=== PATIENT | male | born 1980 | race Hispanic/Latino ===

== ENCOUNTER 2020-03-16 15:58 | Emergency (ER) | payer SELFPAY ==
--- NOTE | 2020-03-16 18:09 | EDPHYS ---
Physician Documentation [facility] Name: Lul Almanza Age: 39 yrs Sex: Male : 1980 Arrival Date: 03/16/2020 Time: 16:02 Bed 8 Private MD: ED Physician Harman Nixon HPI: 03/16 18:01 This 39 yrs old Male presents to ER via Ambulatory with complaints of Neck rn Pain, >24Hrs Old, Arm Pain, Chest Pain. 18:01 The patient or guardian complains of pain. rn 18:03 The symptoms are located at the left scapular area and left trapezius. Onset: The rn symptoms/episode began/occurred 1 month(s) ago. Associated signs and symptoms: Pertinent negatives: bladder incontinence, bowel incontinence, weakness. The pain radiates to the left arm. Modifying factors: The symptoms are alleviated by remaining still, the symptoms are aggravated by movement. Severity of symptoms: At their worst the symptoms were moderate, in the emergency department the symptoms are unchanged. The patient has not experienced similar symptoms in the past. Reports a month or two of left trapezius and scapular pain, radiates to chest and down left arm, no acute trauma, does workout a lot. No weakness/numbness/tingling. . Historical: - Allergies: 16:18 No Known Allergies; ca1 - Home Meds: 16:18 Metformin Oral [Active]; ca1 - PMHx: 16:18 Diabetes - NIDDM; Hypertension; ca1 - PSHx: 16:18 None; ca1 - Immunization history:: Adult Immunizations up to date, Flu vaccine is not up to date. - Social history:: Smoking status: Reported history of juuling and/or vaping. - Family history:: not pertinent. - Hospitalizations: : No recent hospitalization is reported. ROS: 18:03 Constitutional: Negative for fever, chills, and weight loss, Eyes: Negative for injury, rn pain, redness, and discharge, Neck: Negative for injury, pain, and swelling, Cardiovascular: Negative for palpitations, and edema, Respiratory: Negative for shortness of breath, cough, wheezing, and pleuritic chest pain, Abdomen/GI: Negative for abdominal pain, nausea, vomiting, diarrhea, and constipation, Back: Negative for injury and pain, MS/Extremity: Negative for injury and deformity, Skin: Negative for injury, rash, and discoloration, Neuro: Negative for headache, weakness, numbness, tingling, and seizure. Exam: 18:03 Constitutional: This is a well developed, well nourished patient who is awake, alert, rn and in no acute distress. Head/Face: Normocephalic, atraumatic. Neck: Trachea midline, no masses palpated, and no cervical lymphadenopathy. Supple, full range of motion without nuchal rigidity, or vertebral point tenderness. No Meningismus. Chest/axilla: Normal chest wall appearance and motion. Nontender with no deformity. No lesions are appreciated. Skin: Warm, dry MS/ Extremity: Pulses equal, no cyanosis. Neurovascular intact. Full, normal range of motion. Equal circumference. Neuro: Awake and alert, GCS 15, oriented to person, place, time, and situation. Cranial nerves II-XII grossly intact. Motor strength 5/5 in all extremities. Sensory grossly intact. Cerebellar exam normal. Vital Signs: 16:13 BP 145 / 90; Pulse 81; Resp 18 S; Temp 98.4; Pulse Ox 99% on R/A; Weight 83.91 kg (R); ca1 Height 5 ft. 7 in. (170.18 cm) (R); Pain 7/10; 17:45 BP 155 / 89; Pulse 86; Resp 17; Pulse Ox 99% ; bp 18:15 BP 135 / 79; Pulse 89; Resp 17; Temp 98.5; Pulse Ox 99% ; bp 16:13 Body Mass Index 28.97 (83.91 kg, 170.18 cm) ca1 MDM: 17:47 Patient medically screened. rn 18:03 Differential diagnosis: arthritis, Cervical Disc Herniation Cervical Discogenic Pain rn Cervical Raiculopathy cervical strain, torticollis. Data reviewed: vital signs, nurses notes, and as a result, I will discharge patient. Counseling: I had a detailed discussion with the patient and/or guardian regarding: the historical points, exam findings, and any diagnostic results supporting the discharge/admit diagnosis, the need for outpatient follow up, to return to the emergency department if symptoms worsen or persist or if there are any questions or concerns that arise at home. Special discussion: I discussed with the patient/guardian in detail that at this point there is no indication for admission to the hospital. It is understood, however, that if the symptoms persist or worsen the patient needs to return immediately for re-evaluation. Further emergent ED testing is not indicated at this point in time. I discussed with the patient/guardian in detail the need to arrange with the PCP or specialist further outpatient testing, MRI. Administered Medications: 18:18 Drug: Decadron 10 mg Route: IM; Site: left deltoid; jl7 18:29 Follow up: Response: Pain is decreased bp 18:18 Drug: TORadol 30 mg Route: IM; Site: right deltoid; jl7 18:29 Follow up: Response: Pain is decreased bp Disposition: 03/16/20 18:08 Discharged to Home. Impression: Cervical disc disorder with radiculopathy, high cervical region. - Condition is Stable. - Discharge Instructions: Cervical Radiculopathy. - Prescriptions for Cyclobenzaprine 10 mg Oral Tablet - take 1 tablet by ORAL route At bedtime As needed; 15 tablet. Medrol (Marcus) 4 mg Oral Tablets, Dose Pack - take 1 tablet by ORAL route as directed - follow package instructions; 1 packet. - Medication Reconciliation Form, Thank You Letter, Antibiotic Education, Prescription Opioid Use form. - Follow up: Private Physician; When: As needed; Reason: Recheck today's complaints, Re-evaluation by your physician. - Problem is an ongoing problem. - Symptoms have improved. Signatures: Harman Nixon MD MD rn Leal, Jahala RN RN jl7 Shahzad Dumont RN RN bp Venecia Arteaga RN RN ca1 Corrections: (The following items were deleted from the chart) 18:29 18:08 03/16/2020 18:08 Discharged to Home. Impression: Cervical disc disorder with bp radiculopathy, high cervical region. Condition is Stable. Forms are Medication Reconciliation Form, Thank You Letter, Antibiotic Education, Prescription Opioid Use. Follow up: Private Physician; When: As needed; Reason: Recheck today's complaints, Re-evaluation by your physician. Problem is an ongoing problem. Symptoms have improved. rn
--- NOTE | 2020-03-16 18:09 | ER ---
Nurse's Notes [facility] Name: Lul Almanza Age: 39 yrs Sex: Male : 1980 Arrival Date: 03/16/2020 Time: 16:02 Bed 8 Private MD: Diagnosis: Cervical disc disorder with radiculopathy, high cervical region Presentation: 03/16 16:13 Chief complaint: Patient states: Been having this pain on my L shoulder blade for about ca1 a month now, I don't know if it's a pinch nerve. The last week and a half, when I do something, it shoots to my L arm and sometimes on the L side of my chest. Denies injury to the affected areas. Coronavirus screen: Client denies travel out of the [place] in the last 14 days. At this time, the client does not indicate any symptoms associated with coronavirus-19. Ebola Screen: Patient negative for fever greater than or equal to 101.5 degrees Fahrenheit, and additional compatible Ebola Virus Disease symptoms Patient denies exposure to infectious person. Patient denies travel to an Ebola-affected area in the 21 days before illness onset. No symptoms or risks identified at this time. Initial Sepsis Screen: Does the patient meet any 2 criteria? No. Patient's initial sepsis screen is negative. Does the patient have a suspected source of infection? No. Patient's initial sepsis screen is negative. Risk Assessment: Do you want to hurt yourself or someone else? Patient reports no desire to harm self or others. Onset of symptoms was March 16, 2020. 16:13 Method Of Arrival: Ambulatory ca1 16:13 Acuity: VIKASH 4 ca1 Triage Assessment: 17:45 General: Appears in no apparent distress. uncomfortable, Behavior is calm, cooperative, bp appropriate for age. Pain: Complains of pain in left trapezius and left scapular area. EENT: No deficits noted. Neuro: No deficits noted. Cardiovascular: No deficits noted. Respiratory: No deficits noted. GI: No signs and/or symptoms were reported involving the gastrointestinal system. : No signs and/or symptoms were reported regarding the genitourinary system. Derm: No deficits noted. Musculoskeletal: Reports pain in left trapezius and left scapular area. Historical: - Allergies: 16:18 No Known Allergies; ca1 - Home Meds: 16:18 Metformin Oral [Active]; ca1 - PMHx: 16:18 Diabetes - NIDDM; Hypertension; ca1 - PSHx: 16:18 None; ca1 - Immunization history:: Adult Immunizations up to date, Flu vaccine is not up to date. - Social history:: Smoking status: Reported history of juuling and/or vaping. - Family history:: not pertinent. - Hospitalizations: : No recent hospitalization is reported. Screenin:45 Abuse screen: Denies threats or abuse. Denies injuries from another. Nutritional bp screening: No deficits noted. Tuberculosis screening: No symptoms or risk factors identified. Fall Risk None identified. Assessment: 17:45 General: SEE TRIAGE NOTE. Neuro: Level of Consciousness is awake, alert, obeys bp commands, Oriented to person, place, time, situation, Appropriate for age. 18:28 Reassessment: PT D/C HOME AMBULATORY, DX WITH CERVICAL RADICULOPATHY. bp Vital Signs: 16:13 BP 145 / 90; Pulse 81; Resp 18 S; Temp 98.4; Pulse Ox 99% on R/A; Weight 83.91 kg (R); ca1 Height 5 ft. 7 in. (170.18 cm) (R); Pain 7/10; 17:45 BP 155 / 89; Pulse 86; Resp 17; Pulse Ox 99% ; bp 18:15 BP 135 / 79; Pulse 89; Resp 17; Temp 98.5; Pulse Ox 99% ; bp 16:13 Body Mass Index 28.97 (83.91 kg, 170.18 cm) ca1 ED Course: 16:02 Patient arrived in ED. as 16:17 Triage completed. ca1 16:18 Arm band placed on right wrist. ca1 17:45 Patient has correct armband on for positive identification. Bed in low position. Call bp light in reach. Side rails up X2. 17:47 Harman Nixon MD is Attending Physician. rn 17:57 Shahzad Dumont, JOSH is Primary Nurse. bp 18:28 No provider procedures requiring assistance completed. Patient did not have IV access bp during this emergency room visit. Administered Medications: 18:18 Drug: Decadron 10 mg Route: IM; Site: left deltoid; jl7 18:29 Follow up: Response: Pain is decreased bp 18:18 Drug: TORadol 30 mg Route: IM; Site: right deltoid; jl7 18:29 Follow up: Response: Pain is decreased bp Outcome: 18:08 Discharge ordered by . rn 18:28 Discharged to home ambulatory. bp 18:28 Condition: stable 18:28 Discharge instructions given to patient, Instructed on discharge instructions, follow up and referral plans. medication usage, Demonstrated understanding of instructions, follow-up care, medications, Prescriptions given X 2. 18:29 Patient left the ED. bp Signatures: Ambar Nixon Roman, MD MD rn Leal, Jahala RN RN jl7 Shahzad Dumont RN RN bp Acob, Venecia, RN RN ca1 Corrections: (The following items were deleted from the chart) 18:00 17:30 BP 155 / 89; Pulse 86bpm; Resp 17bpm; Pulse Ox 99%; bp bp
[2020-03-16] MEDS ORDERED: KETOROLAC 30 MG/ML INJ ONE (18:27)
[2020-03-16] MEDS ORDERED: dexAMETHasone 10 MG/ML VIAL ONE (18:27)
[2020-03-19 22:56] VITALS: O2SAT 99
[2020-03-19 22:59] VITALS: BP 135/79; TEMP 98.5
== END 2020-03-16 18:29 | disposition home or self-care (01) ==
LOC: ER 15:58
DX: M50.11 Cervical disc disorder with radiculopathy, high cervical region (principal); I10 Essential (primary) hypertension; E11.9 Type 2 diabetes mellitus without complications; Z87.891 Personal history of nicotine dependence
CPT/HCPCS: 96372; 99283; J1100